=== PATIENT | male | born 1945 | race Two or more races ===

== ENCOUNTER 2017-09-12 06:16 | Day surgery (SDC) | payer MEDICARE, BC ==
[~2017-09-12] VITALS: Ht 170.2 cm; Wt 72.6 kg
[2017-09-12] MEDS ORDERED: FENOFIBRIC ACI135 MG PO (06:41)
[2017-09-12] MEDS ORDERED: LISINOPRIL2.5 MG ORAL (06:41)
[2017-09-12] MEDS ORDERED: WELCHOL625 MG ORAL (06:41)
[2017-09-12] MEDS ORDERED: METFORMIN HCL500 M1 ORAL (06:41)
[2017-09-12] MEDS ORDERED: JANUVIA25 MG ORAL (06:41)
[2017-09-12] MEDS ORDERED: ASPIRIN81 MG ORAL (06:41)
[2017-09-12] MEDS ORDERED: VITAMIN D1000 UNI1 ORAL (06:41)
[2017-09-12 06:53] VITALS: BP 106/62
[2017-09-12] MEDS ORDERED: Lidocaine 1% 10mg/ml/EPI 0.01mg/ml 50ml INJ ONE (07:18)
--- NOTE | 2017-09-12 07:25 | Pre-Procedure Note/Attestation ---
Pre-Procedure Note/Attestation Complete Prior to Procedure Planned Procedure: not applicable Procedure Narrative: excixsion lesion of the nose Indications for Procedure Pre-Operative Diagnosis: suspicious skin lesion of nose Attestation I attest that I discussed the nature of the procedure; its benefits; risks and complications; and alternatives (and the risks and benefits of such alternatives ), prior to the procedure, with the patient (or the patient's legal call center support representative). I attest that, if there was a reasonable possibility of needing a blood transfusion, the patient (or the patient's legal call center support representative) was given the [facility] standardized written summary, pursuant to the Srinivas Myriam Blood Safety Act ([place] Health and Safety Code # 1645, as amended). I attest that I re-evaluated the patient just prior to the surgery and that there has been no change in the patient's H&P, except as documented below: RADHA TRISTAN Sep 12, 2017 07:25
[2017-09-12] MEDS ORDERED: Bacitracin Oint 15gm Tube TOPIC ONE (07:58)
[2017-09-12 08:10] VITALS: BP 105/65
[2017-09-12 08:25] VITALS: BP 107/61
--- NOTE | 2017-09-13 08:00 | Operative Note - Dictated ---
DATE OF OPERATION: 09/12/2017 PREOPERATIVE DIAGNOSIS: Skin lesion at the right nasal tip. POSTOPERATIVE DIAGNOSIS: Skin lesion at the right nasal tip. PROCEDURE: Excision of skin lesion at the right nasal tip. SURGEON: Anderson Alatorre M.D. ANESTHESIA: Local. DESCRIPTION OF PROCEDURE: The patient was brought to the operating room and placed supine on the operation table. The lesion of the right nasal tip adjacent to the ala and lobule was marked with methylene blue. The area was prepped and draped in the usual fashion. Xylocaine with epinephrine was used to infiltrate the area. Time was left for vasoconstriction. Using #15 scalpel, the lesion was excised and submitted in formalin for permanent identification. The deeper tissues were then closed with interrupted sutures of 5-0 Monocryl and the skin was closed with inverted sutures of 5-0 nylon. Small wound was allowed to remain open in order to avoid adjacent tissue transfer or graft and to permit secondary healing. Bacitracin ointment was applied. Steri-Strips were placed. Sterile dressing was applied. The patient tolerated the surgery well. He was returned to recovery room in excellent condition. Anderson Alatorre M.D. DR: BHAVYA JOB#: [id number] CC: [email or web address]
== END 2017-09-12 08:30 | disposition home or self-care (01) ==
LOC: SUR 06:16
DX: L57.0 Actinic keratosis (principal); L57.8 Other skin changes due to chronic exposure to nonionizing radiation
CPT/HCPCS: 82962